=== PATIENT | female | born 2000 | race African-American/Black ===

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

== ENCOUNTER 2022-07-07 21:36 | Emergency (ER) | payer OTHER ==
[~2022-07-07] VITALS: Ht 170.2 cm; Wt 60.7 kg
[~2022-07-07 21:36] MED LIST: TRAMADOL HYDROC50 MG PO
[2022-07-07 22:14] LABS: BASO% 0.2 % (0-3); EOS% 0.1 % (0-8); HEMATOCRIT 39.3 % (37.0-47.0); HEMOGLOBIN 13.1 g/dl (12.0-16.0); IMMATURE GRANULOCYTES 0.5 % (0.0-5.0); LYMPH% 9.8 % (15-41); MEAN CORPUSCULAR HGB CONC 33.3 g/dL CAL (32.0-36.0); MONO% 9.2 % (2-13); NEUT# 12.11 thou/uL (2.00-7.15); NEUT% 80.2 % (42-76); RED BLOOD COUNT 4.85 mill/uL (4.20-5.60); RED CELL DISTRI WIDTH 12.4 % (11.5-15.5)
[2022-07-07] MEDS ORDERED: AMOXICILLIN500 MG PO (22:39)
[2022-07-07 22:59] VITALS: BP 122/78
== END 2022-07-07 23:09 | disposition home or self-care (01) | DRG 153 ==
LOC: ED 21:36
PROVIDERS: Family Medicine
DX: J02.9 Acute pharyngitis, unspecified (principal); Z20.822 Contact with and (suspected) exposure to COVID-19